=== PATIENT | male | born 1965 | race African-American/Black ===

== ENCOUNTER 2016-09-03 17:00 | Emergency (ER) | payer MEDICAID, OTHER ==
[~2016-09-03] VITALS: Ht 175.3 cm; Wt 98.9 kg
[2016-09-03 17:25] VITALS: BP 150/55
[2016-09-03 18:03] LABS: Basophils # (auto) 0 uL; Basophils % (auto) 0.4 % (0.0-2.0); DEFINITIVE VIEW TRANSMISSION; Eosinophils # (auto) 0 uL; Eosinophils % (auto) 0.5 % (0.0-7.0); Hemoglobin 14.3 g/dL (13.5-17.5); Lymphocytes # (auto) 2.5 uL; Lymphocytes % (auto) 25.3 % (10.0-50.0); Mean Corpuscular Hemoglobin 22.4 pg (28.0-32.0); Mean Corpuscular Hgb Conc. 30.9 g/dL (32.0-36.0); Mean Corpuscular Volume 72.5 fL (80.0-100.0); Mean Platelet Volume 9.7 fL (7.4-10.4); Monocytes # (auto) 0.5 uL; Monocytes % (auto) 5.1 % (0.0-12.0); Neutrophils # (auto) 6.7 uL; Neutrophils % (auto) 68.7 % (37.0-80.0); Platelet Count (auto) 292 10^3/uL (140-450); SUSPECT VIEW TRANSMISSION; White Blood Cell 9.7 10^3/uL (4.4-10.8)
[2016-09-03 18:12] LABS: Red Cell Distribution Width 20.8 % (11.6-16.0)
[2016-09-03 18:40] LABS: Albumin 4.1 g/dL (3.4-5.0); BUN/Creatinine Ratio 8.9; Bilirubin, Total 1.3 mg/dL (0.2-1.0); Calcium 9.3 mg/dL (8.5-10.1); Potassium 3.7 mmol/L (3.5-5.1); Total Protein 7.5 g/dL (6.4-8.2)
[2016-09-03 18:48] LABS: Anisocytosis Slight; Hypochromia Slight; Platelet Estimate Adequate
[2016-09-03] MEDS ORDERED: SODIUM CHLORIDE 0.9% 1,000 ML IV ONE (19:15)
[2016-09-03] MEDS ORDERED: ONDANSETRON HCL 4 MG/2 ML VIAL IV ONE (19:15)
[2016-09-03] MEDS ORDERED: ACETAMINOPHEN/CODEINE#3 (300/30mg) TAB PO ONE (20:30)
== END 2016-09-03 20:55 | disposition home or self-care (01) ==
LOC: ER 17:00
DX: K52.9 Noninfective gastroenteritis and colitis, unspecified (principal); F17.210 Nicotine dependence, cigarettes, uncomplicated; I10 Essential (primary) hypertension
CPT/HCPCS: 36415; 74176; 80053; 85025; 96361; 96374; 99285; J2405; J7030

== ENCOUNTER 2022-02-12 10:05 | Emergency (ER) | payer MEDICAID, OTHER ==
[~2022-02-12] VITALS: Ht 175.3 cm; Wt 82.0 kg
[2022-02-12 10:05] VITALS: BP 0/0
== END 2022-02-12 15:22 | disposition left against medical advice (07) ==
LOC: ER 10:05
DX: T14.90XA Injury, unspecified, initial encounter (principal); Z53.21 Procedure and treatment not carried out due to patient leaving prior to being seen by health care provider; X58.XXXA Exposure to other specified factors, initial encounter; Y93.89 Activity, other specified; Y92.89 Other specified places as the place of occurrence of the external cause; Y99.8 Other external cause status